=== PATIENT | male | born 1980 | race Two or more races ===

== ENCOUNTER → 2017-04-25 | Outpatient (CLI) | payer OTHER ==
[2017-04-25 12:19] LABS: SEMEN WET PREP WBC 0-2 /HPF; WET PREP SPERM NONE SEEN /HPF (NONE SEEN)
== END ==
LOC: CLAB 10:45
PROVIDERS: ATTEND Urology
DX: Z30.2 Encounter for sterilization (principal)
CPT/HCPCS: 89321